=== PATIENT | male | born 1955 | race Caucasian/White ===

== ENCOUNTER 2016-09-01 09:34 | Emergency (ER) | payer MEDICARE, BC | END 2016-09-01 11:32 | disposition home or self-care (01) | LOC: D.ER 09:34 | DX: R07.89 Other chest pain (principal); I10 Essential (primary) hypertension; F17.200 Nicotine dependence, unspecified, uncomplicated ==

== ENCOUNTER 2017-01-12 12:46 | Emergency (ER) | payer MEDICARE, BC ==
[2017-01-12 13:16] LABS: APPEARANCE CLEAR (CLEAR); BILIRUBIN NEGATIVE (NEGATIVE); COLOR YELLOW (YELLOW); GLUCOSE NEGATIVE (NEGATIVE); KETONE NEGATIVE (NEGATIVE); LEUKOCYTE ESTERASE NEGATIVE (NEGATIVE); NITRITE NEGATIVE (NEGATIVE); PROTEIN NEGATIVE (NEGATIVE); UROBILINOGEN NORMAL (NORMAL)
[2017-01-12 13:23] LABS: UDS - AMPHET NEGATIVE QUAL (NEGATIVE); UDS - BARB NEGATIVE QUAL (NEGATIVE); UDS - BENZO NEGATIVE QUAL (NEGATIVE); UDS - COCAINE NEGATIVE QUAL (NEGATIVE); UDS - METH NEGATIVE QUAL (NEGATIVE); UDS - OPIATE NEGATIVE QUAL (NEGATIVE); UDS - PCP NEGATIVE QUAL (NEGATIVE); UDS - THC POSITIVE QUAL (NEGATIVE)
== END 2017-01-12 14:17 | disposition home or self-care (01) ==
LOC: D.ER 12:46
PROVIDERS: Emergency Medicine
DX: F32.9 Major depressive disorder, single episode, unspecified (principal); G89.29 Other chronic pain; I10 Essential (primary) hypertension

== ENCOUNTER 2017-03-02 12:36 | Emergency (ER) | payer MEDICARE, BC ==
[2017-03-02 14:19] LABS: BASOPHILS 0.1 % (0-2); EOSINOPHILS 0.5 % (0-7); HEMATOCRIT 46.8 % (42.0-54.0); HEMOGLOBIN 15.8 g/dL (13.5-17.5); IMMATURE GRANULOCYTES 0.3 % (0-5); LYMPHOCYTES 5.4 % (15-50); MCH 32.4 pg (26.0-34.0); MCHC 33.8 g/dL (31.0-37.0); MCV 95.9 fL (80.0-100.0); MEAN PLATELET VOLUME 12.5 fL (7.4-10.4); MONOCYTES 1.7 % (2-11); PLATELET COUNT 171 10x3/uL (130-400); RBC 4.88 10x6/uL (4.20-6.10); RDW 13.1 % (11.5-14.5); WBC 14.9 10x3/uL (4.8-10.8)
[2017-03-02 16:01] LABS: ALBUMIN 3.5 g/dL (3.4-5.0); ALKALINE PHOSPHATASE 58 U/L (46-116); ALT (SGPT) 28 U/L (10-68); CALC OSMOLALITY 276 mosm/kg (275-300); CHLORIDE - SERUM 105 mmol/L (98-107); CREATININE - SERUM 0.8 mg/dL (0.6-1.3); GLUCOSE 138 mg/dL (74-106); POTASSIUM - SERUM 4.4 mmol/L (3.5-5.1); PROTEIN - SERUM 7.1 g/dL (6.4-8.2); SODIUM 138 mmol/L (136-145); UREA NITROGEN 11 mg/dL (7-18); eGFR NON AFRICAN AMERICAN > 90 mL/min (90-120)
[2017-03-02 16:06] LABS: AMYLASE - SERUM 31 U/L (25-115); CREATINE KINASE 93 UL (21-232); LIPASE 90 U/L (73-393); TROPONIN-I < 0.017 ng/mL (0.000-0.060)
== END 2017-03-02 20:00 | disposition home or self-care (01) ==
LOC: D.ER 12:36
PROVIDERS: Emergency Medicine
DX: K57.92 Diverticulitis of intestine, part unspecified, without perforation or abscess without bleeding (principal); I10 Essential (primary) hypertension

== ENCOUNTER 2017-04-26 17:45 | Emergency (ER) | payer MEDICARE, BC ==
[2017-04-26 18:31] LABS: BASOPHILS 0.1 % (0-2); EOSINOPHILS 0.1 % (0-7); HEMATOCRIT 46.6 % (42.0-54.0); IMMATURE GRANULOCYTES 0.3 % (0-5); LYMPHOCYTES 5.7 % (15-50); MCH 32.2 pg (26.0-34.0); MCHC 34.3 g/dL (31.0-37.0); MCV 93.8 fL (80.0-100.0); MEAN PLATELET VOLUME 11.9 fL (7.4-10.4); MONOCYTES 2.7 % (2-11); NEUTROPHILS 91.1 % (40-80); PLATELET COUNT 207 10x3/uL (130-400); RBC 4.97 10x6/uL (4.20-6.10); RDW 12.7 % (11.5-14.5); WBC 13.7 10x3/uL (4.8-10.8)
[2017-04-26 19:06] LABS: ALBUMIN 3.6 g/dL (3.4-5.0); ALKALINE PHOSPHATASE 58 U/L (46-116); ALT (SGPT) 29 U/L (10-68); BILIRUBIN - TOTAL 0.49 mg/dL (0.2-1.3); CALC OSMOLALITY 275 mosm/kg (275-300); CALCIUM 8.4 mg/dL (8.5-10.1); CHLORIDE - SERUM 101 mmol/L (98-107); CREATININE - SERUM 0.7 mg/dL (0.6-1.3); GLUCOSE 153 mg/dL (74-106); POTASSIUM - SERUM 4.1 mmol/L (3.5-5.1); PROTEIN - SERUM 7.2 g/dL (6.4-8.2); SODIUM 137 mmol/L (136-145); UREA NITROGEN 11 mg/dL (7-18); eGFR NON AFRICAN AMERICAN > 90 mL/min (90-120)
[2017-04-26 20:23] LABS: AMYLASE - SERUM 23 U/L (25-115); LIPASE 81 U/L (73-393)
[2017-04-26 22:03] LABS: APPEARANCE CLEAR (CLEAR); BILIRUBIN NEGATIVE (NEGATIVE); COLOR YELLOW (YELLOW); GLUCOSE NEGATIVE (NEGATIVE); KETONE LARGE mg/dL (NEGATIVE); NITRITE NEGATIVE (NEGATIVE); PROTEIN NEGATIVE (NEGATIVE); UROBILINOGEN NORMAL (NORMAL)
== END 2017-04-26 22:08 | disposition home or self-care (01) ==
LOC: D.ER 17:45
PROVIDERS: Emergency Medicine; Physician Assistant
DX: K52.9 Noninfective gastroenteritis and colitis, unspecified (principal); R11.2 Nausea with vomiting, unspecified; R07.81 Pleurodynia; Z98.890 Other specified postprocedural states; I10 Essential (primary) hypertension

== ENCOUNTER 2018-07-14 12:24 | Observation (INO) | payer MEDICARE, BC ==
[~2018-07-14] VITALS: Ht 175.3 cm; Wt 97.7 kg
--- NOTE | ~2018-07-14 | HEMODYNAMI ---
PATIENT:NELLY CRANE MEDICAL RECORD: [id number] : 57 LOCATION:[facility] JasonE[address]- [facility]# [id number] ADMISSION DATE: 07/14/18 Generatedon:07/14/201817:29 Patient name: NELLY CRANE Patient #: [id number] SSN: D OB: 1955 Date of study: 07/14/2018 Page: Of Hemodynamic Procedure Report Patient Data Patient Demographics Procedure consent was obtained First Name: NELLY Gender: Female Last Name: ROYCE : 1955 Middle Initial: A Age: 63 year(s) Patient #: [id number] Race: Unknown Additional ID: [id number] Contact details [address]: [address] [place] [address] State: [place] City: [place] Zip code: [address] Admission Admission Data Admission Date: 07/14/2018 Admission Time: 15:55 Room #: D.E14 Procedure Procedure Types Cath Procedure Diagnostic Procedure LHC LH w/Coronaries Sedation Charges Moderate Sedation up to 15 minutes PCI Procedure Coronary Stent Coronary Stent Initial x2 Procedure Description Procedure Date Procedure Date: 07/14/2018 Procedure Start Time: 17:10 Procedure End Time: 17:25 Procedure Staff Name Function Frank Boateng MD Performing Physician Nelly Sanchez RT Monitor Casandra Boland RN Nurse Valerie Bowers RT Scrub Sarah Moore RT Scrub Tyree Taylor RT Diesel Instructor Procedure Data Cath Procedure Fluoroscopy Diagnostic fluoroscopy Total fluoroscopy Time: 3.4 time: 3.4 min min Diagnostic fluoroscopy Total fluoroscopy dose: 763 dose: 763 mGy mGy Contrast Material Contrast Material Type Amount (ml) Isovue 300 93 Entry Location Entry Primary Successful Side Size Upsize Upsize Entry Closure Leigh ccessful Closure Location (Fr) 1 (Fr) 2 (Fr) Remarks Device Remarks Radial Right 6 Fr Mechanical artery Short Compression Estimated blood loss: 5 ml Diagnostic catheters Device Type Used For End Catheter Placement DIAGNOSTIC [place] 110cm 5 Multi-vessel Fr catheter ([id number]) Angiography Procedure Complications No complications Procedure Medications Medication Administration Route Dosage 0.9% NaCl I.V. 100 ml/hr Oxygen etCO2 Nasal cannula 2 l/min Lidocaine 2% added to field 20 Heparin Flush Bag added to field 2 bags (1000units/500ml NS) Radial Cocktail added to field 1 syringe (Verapomil 2mg/Nitro 400mcg/Heparin 1500units) Versed I.V. 2 mg Fentanyl I.V. 50 mcg Versed I.V. 2 mg Fentanyl I.V. 50 mcg Fentanyl I.V. 100 mcg Versed I.V. 2 mg Heparin Bolus I.V. 4000 units Integrilin (Bolus I.V. 9 ml 2mg/ml) Plavix P.O. 600 mg Hemodynamics Rest Heart Rate: 82 (bpm) Pressure Samples Time Site Value (mmHg) Purpose Heart Use Rate(bpm) 17:12 LV 21/7,15 Snapshot 87 Snapshots Pre Cath Intra NCS Post Cath Vital Signs Time Heart Resp SPO2 etCO2 NIBP (mmHg) Rhythm Pain Sedation Rate (ipm) (%) (mmHg) Status Level (bpm) 16:58:55 75 13 98 23 157/90(118) NSR 0 (11) 10(A) , No pain 17:03:26 77 15 98 31.9 148/85(123) NSR 0 (11) 10(A) , No pain 17:08:45 76 10 99 29 144/94(113) NSR 0 (11) 10(A) , No pain 17:12:59 86 21 99 32.7 127/108(119) NSR 0 (11) 10(A) , No pain 17:17:19 72 16 97 30.4 147/81(118) NSR 0 (11) 10(A) , No pain 17:21:45 89 14 99 30 134/93(119) NSR 0 (11) 10(A) , No pain 17:26:12 87 14 89 0 139/79(122) NSR 0 (11) 10(A) , No pain Medications Time Medication Route Dose Verified Delivered Reason Not es Effectiveness by by 16:58:05 0.9% NaCl I.V. 100 Frank Gomesyla used for ml/hr Tasneem Boland mva reactor operator head 16:58:12 Oxygen etCO2 2 l/min Frank Coppolaa used for Nasal Tasneem Boland procedure cannula RN 16:58:18 Lidocaine 2% added 20ml Frank Frank for local to vial Tasneem Boateng MD anesthetic field 16:58:23 Heparin Flush added 2 bags Frank Watersrey used for Bag to Tasneem Boateng MD procedure (1000units/500ml field NS) 16:58:29 Radial Cocktail added 1 Frank Frank used for (Verapomil to syringe Tasneem Boateng MD procedure 2mg/Nitro field 400mcg/Heparin 1500units) 17:01:05 Versed I.V. 2 mg Frank Casandra for sedation Tasneem Boland RN 17:01:14 Fentanyl I.V. 50 mcg Frank Casandra for sedation Tasneem Boland RN 17:06:09 Fentanyl I.V. 50 mcg Frank Casandra for sedation Tasneem Boland RN 17:06:25 Versed I.V. 2 mg Frank Casandra for sedation Tasneem Boland RN 17:12:16 Fentanyl I.V. 100 mcg Frank Casandra for sedation Tasneem Boland RN 17:12:46 Versed I.V. 2 mg Frank Casandra for sedation Tasneem Boland RN 17:15:11 Heparin Bolus I.V. 4000 Frank Casandra for val ified units Tasneem Boland anticoagulation with Dr. MARY Boateng 17:21:26 Integrilin I.V. 9 ml Frank Casandra for was atilio (Bolus 2mg/ml) Tasneem Boland anticoagulation 1mL RN 17:21:42 Plavix P.O. 600 mg Frank Casandra for Tasneem Boland antiplatelet RN therapy Procedure Log Time Note 16:37:27 Time tracking: Stay late (Procedures after 5:00pm) 16:37:40 Plan of Care:Hemodynamics will remain stable., Cardiac rhythm will remain stable., Comfort level will be maintained., Respiratory function will remain adequate., Patient/ family verbilizes understanding of procedure., Procedure tolerated without complication., Recovers from procedure without complications.. 16:43:47 Nelly Sanchez RT(R) sent for patient. Start room use. 16:55:38 Patient received from ED to CCL 1 Alert and oriented. Tansferred to table in Supine position. 16:55:39 Warm blankets applied, and ena hugger turned on for patient comfort. 16:55:40 Correct patient and procedure confirmed by team. 16:55:41 Signed procedure consent form obtained from patient. 16:55:42 ECG and BP/O2 sat monitors applied to patient. 16:55:43 Full Disclosure recording started 16:57:15 Vital chart was started 16:57:18 Baseline sample Acquired. 16:57:32 Rhythm: sinus rhythm 16:57:41 H&P Date Dictated: 07/14/2018 New H&P dictated by physician.. 16:57:58 Pre-procedure instructions explained to patient. 16:57:59 Pre-op teaching completed and patient verbalized understanding. 16:58:02 Family in waiting room. 16:58:05 0.9% NaCl 100 ml/hr I.V. was administered by Casandra Boland RN; used for procedure; 16:58:12 Oxygen 2 l/min etCO2 Nasal cannula was administered by Casandra Boland RN; used for procedure; 16:58:18 Lidocaine 2% 20ml vial added to field was administered by Frank Boateng MD; for local anesthetic; 16:58:23 Heparin Flush Bag (1000units/500ml NS) 2 bags added to field was administered by Frank Boateng MD; used for procedure; 16:58:29 Radial Cocktail (Verapomil 2mg/Nitro 400mcg/Heparin 1500units) 1 syringe added to field was administered by Frank Boateng MD; used for procedure; 16:58:52 Patient NPO since Midnight. 16:58:55 Is the patient allergic to Iodine/contrast media? No. 16:58:56 Was the patient premedicated? No 16:59:02 Is patient on blood thinner?No 17:00:01 Patient diabetic? No. 17:00:03 Previous problem with sedation/anesthesia? No ? 17:00:05 Snore? No 17:00:06 Sleep apnea? No 17:00:07 Deviated septum? No 17:00:08 Opens mouth fully? Yes 17:00:08 Sticks out tongue? Yes 17:00:10 Airway obstruction? No ? 17:00:13 Dentures? Yes out 17:00:17 Pre procedure: right dorsailis pedis pulse 2+ Normal; easily identifiable; not easily obliterated 17:00:19 Pre procedure: left dorsailis pedis pulse 2+ Normal; easily identifiable; not easily obliterated 17:00:21 Patient pain scale 0/10 ?. 17:00:29 IV patent on arrival in left antecubital with 0.9% NaCl at [facility]. 17:00:31 Lab results completed and on chart. 17:00:35 Right Radial & Right Groin area was prepped with chlora-prep and draped in sterile fashion 17:00:36 Alarms reviewed by R. N. 17:00:37 Sharps counted by scrub and verified by R.N. 17:00:40 Physician arrived 17:00:40 --------ALL STOP TIME OUT------ 17:00:41 Final Timeout: patient, procedure, and site verified with staff and physician. All members of the team are in agreement. 17:00:42 Right Radial & Right Groin site verified by team. 17:00:47 Fire Safety Assessment: A--An alcohol-based skin anteseptic being used preoperatively., C--Open oxygen or nitrous oxide is being used., D--An ESU, laser, or fiber-optic light is being used. 17:00:51 Physical assessment completed. ASA score P 2 - A patient with mild systemic disease as per Frank Boateng MD. 17:00:56 Sedation plan: IV Moderate Sedation Medication:Versed, Fentanyl 17:01:05 Versed 2 mg I.V. was administered by Casandra Boland RN; for sedation; 17:01:14 Fentanyl 50 mcg I.V. was administered by Casandra Boland RN; for sedation; 17:06:09 Fentanyl 50 mcg I.V. was administered by Casandra Boland RN; for sedation; 17:06:25 Versed 2 mg I.V. was administered by Casandra Boland RN; for sedation; 17:07:07 Baseline sample Acquired. 17:10:09 Procedure started. 17:10:20 Local anesthetic to right radial artery with Lidocaine 2% by Frank Boateng MD.INITIAL ACCESS ONLY 17:10:36 A 6 Fr Short sheath was inserted into the Right Radial artery 17:11:09 Use device set Radial Dx or PCI 17:11:10 ACIST Syringe (82325) opened to sterile field. 17:11:11 Medline Cath Pack ([id number]) opened to sterile field. 17:11:11 Bag Decanter () opened to sterile field. 17:11:11 DIAGNOSTIC WIRE .035 260cm J wire (699843) opened to sterile field. 17:11:12 ACIST Hand Control (40029) opened to sterile field. 17:11:12 ACIST Manifold (30059) opened to sterile field. 17:11:13 Tegaderm 4 x 4 (1626W) opened to sterile field. 17:11:14 MBrace Wrist Support ([id number]) opened to sterile field. 17:11:15 SHEATH 6FR Slender (84-6562) opened to sterile field. 17:11:32 A DIAGNOSTIC [place] 110cm 5 Fr catheter (198538) was advanced over the wire and used for Multi-vessel Angiography. 17:12:16 Fentanyl 100 mcg I.V. was administered by Casandra Boland RN; for sedation; 17:12:43 LV hemodynamics recorded. 17:12:45 LV gram done using NGUYEN 17:12:46 Versed 2 mg I.V. was administered by Casandra Boland RN; for sedation; 17:12:50 EF : 55 % 17:13:13 LCA angiography performed. 17:13:16 Injector settings: Ml/sec: 3, Volume: 6, 17:13:48 RCA angiography performed. 17:13:51 Injector settings: Ml/sec: 3, Volume: 6, 17:14:21 Catheter removed. 17:14:33 GUIDE 6FR AR 2.0 catheter ([id number]) opened to sterile field. 17:14:35 CHOICE PT Extra Support 182cm wire ([id number]) opened to sterile field. 17:14:36 INFLATOR Merit BasixCompak (DB1087) opened to sterile field. 17:14:40 Proceeding to intervention. 17:14:50 6 Fr ar 2 guide catheter was inserted over the wire 17:14:54 choice pt wire advanced. 17:14:56 Wire advanced across lesion. 17:15:11 Heparin Bolus 4000 units I.V. was administered by Casandra Boland RN; for anticoagulation; verified with Dr. Boateng 17:18:07 Place stent Inflation Number: 1 A INTEGRITY RX 2.5 x 12 stent ([id number]) was prepped and advanced across the Dist RCA. The stent was deployed at 13 LAN for 0:10 (min:sec). 17:18:51 Stent catheter was removed intact over wire. 17:18:56 Wire removed. 17:18:57 Guide catheter removed. 17:19:52 GUIDE 6FR XBLAD 3.5 catheter ([id number]) opened to sterile field. 17:20:08 6 Fr xblad 3.5 guide catheter was inserted over the wire 17:20:17 choice pt wire advanced. 17:20:18 Wire advanced across lesion. 17:21:26 Integrilin (Bolus 2mg/ml) 9 ml I.V. was administered by Casandra Boland RN; for anticoagulation; wasted 1mL 17:21:38 Place stent Inflation Number: 1 A INTEGRITY RX 2.5 x 14 stent ([id number]) was prepped and advanced across the Prox CX. The stent was deployed at 15 LAN for 0:10 (min:sec). 17:21:42 Plavix 600 mg P.O. was administered by Casandra Boland RN; for antiplatelet therapy; 17:21:44 Stent catheter was removed intact over wire. 17:21:45 Wire removed. 17:21:46 Guide catheter removed. 17:23:04 TR BAND Large ([id number]) opened to sterile field. 17:24:14 Sheath removed intact; hemostasis achieved with Mechanical Compression to the Right Radial artery. 17:24:16 Procedure ended.(Physican Out) 17:24:28 Fluoroscopy time 03.40 minutes. 17:24:32 Fluoroscopy dose: 763 mGy 17:24:32 Flurop Dose total: 763 17:24:39 Contrast amount:Isovue 300 93ml. 17:24:41 Sharps counted by scrub and verified by R.N. 17:24:44 TR band inflated with 10cc of air. 17:24:46 Insertion/operative site no bleeding no hematoma. 17:24:50 Post right radial artery:stable 17:24:51 Post Procedure Pulses reassessed and unchanged 17:24:54 Post procedure rhythm: unchanged. 17:24:57 Estimated blood loss: 5 ml 17:24:58 Post procedure instruction explained to patient.Patient verbalizes understanding. 17:24:59 Patient needs reinforcement of post procedure teaching. 17:25:24 Procedure type changed to Cath procedure, Diagnostic procedure, LHC, LHC w/Coronaries, Sedation Charges, Moderate Sedation up to 15 minutes, PCI procedure, Coronary Stent, Coronary Stent Initial x2 17:25:25 Procedure and supply charges have been captured, reviewed, submitted and are correct. 17:25:30 Procedure Complication : No complications 17:25:32 Vital chart was stopped 17:25:32 See physician's report for complete and final results. 17:25:39 Report given to [facility]. 17:25:42 Patient transfered to [facility] with Stretcher. 17:25:45 Procedure ended. 17:25:45 Full Disclosure recording stopped 17:25:54 ACC-PCI Only Patient was given prescriptions, or instructed by Frank Boateng MD to start/continue the following medications upon discharge: Plavix 17:25:56 End room use (Document Last) Intervention Summary Intervention Notes Time ActionType Lesion and Equipment Action# Pressure Duration Attributes Used 17:18:07 Place stent Dist RCA INTEGRITY RX 1 13 00:10 2.5 x 12 stent ([id number]) 17:21:38 Place stent Prox CX INTEGRITY RX 1 15 00:10 2.5 x 14 stent ([id number]) Device Usage Item Name Manufacture Quantity Catalog Number Hospital Part Current Mini mal Lot# / Charge Number Stock Stock Serial# Code ACIST Acist 1 74748 089568 397827 048764 20 Syringe Medical (43794) Systems Inc Medline Cath Medline 1 [id number] 932580 41594 327661 5 Pack ([id number]) Bag Decanter Microtek 1 2001S 817300 71812 888228 5 (2001S) Medical Inc. DIAGNOSTIC St Artem 1 701346 960777 251596 510863 30 WIRE .035 260cm J wire (691942) ACIST Hand Acist 1 83787 386015 766118 166619 5 Control Medical (58271) Systems Inc ACIST Acist 1 82843 742046 058464 928097 5 Manifold Medical (77132) Systems Inc Tegaderm 4 x 3M 1 1626W 690304 283941 653450 5 4 (1626W) MBrace Wrist Advanced 1 140-0250-00 219400 18779 308098 5 Support Vascular (533175720) Dynamics SHEATH 6FR Terumo 1 [id number] 792500 935585 866353 5 Slender (80-1060) DIAGNOSTIC Terumo 1 40-5013 247327 026342 271214 5 [place] 110cm 5 Fr catheter (728175) GUIDE 6FR AR Medtronic 1 BM3ON05 285598 47532 851525 1 2.0 catheter (QS3HP65) CHOICE PT Hudgins 1 [id number] 486263 127244 969180 5 Extra Scientific Support 182cm wire ([id number]) INFLATOR Merit 1 ZI2695 702809 314694 668114 15 [facility] Medical BasixCompak (LT8103) INTEGRITY RX Medtronic 1 [id number] 355035 146100 249125 5 [id number] 2.5 x 12 stent ([id number]) GUIDE 6FR Cardinal 1 [id number] 249890 290031 441859 10 XBLAD 3.5 Health catheter (67407289) INTEGRITY RX Medtronic 1 [id number] 858045 580272 190031 5 [id number] 2.5 x 14 stent ([id number]) TR BAND Terumo 1 [id number] 344501 853865 484212 40 Large (HHY84BWS) Signature Audit [place] Stage Time Signature Unsigned Intra-Procedure 07/14/2018 Valerie Bowers 5:29:45 PM RT(R) Signatures Monitor : Nelly Signature : Counts RT Date : Time : [place] [address] [place] [address]
[2018-07-14] MEDS ORDERED: AMITRIPTYLINE150 MG PO (12:31)
[2018-07-14] MEDS ORDERED: MOBIC7.5 MG PO (12:32)
[2018-07-14] MEDS ORDERED: NORVASC5 MG PO (12:32)
[2018-07-14 12:55] LABS: BASOPHILS 0.3 % (0-2); EOSINOPHILS 2.5 % (0-7); HEMATOCRIT 41.3 % (36.0-48.0); HEMOGLOBIN 14.3 g/dL (12-16); IMMATURE GRANULOCYTES 0.1 % (0-5); MCH 30.9 pg (26.0-34.0); MCHC 34.6 g/dL (31.0-37.0); MCV 89.2 fL (80.0-100.0); MEAN PLATELET VOLUME 11.3 fL (7.4-10.4); MONOCYTES 6.7 % (2-11); NEUTROPHILS 73.4 % (40-80); PLATELET COUNT 189 10x3/uL (130-400); RBC 4.63 10x6/uL (4.00-5.40); RDW 13.8 % (11.5-14.5); WBC 7.9 10x3/uL (4.8-10.8)
[2018-07-14 13:10] LABS: ALBUMIN 3.2 g/dL (3.4-5.0); ALKALINE PHOSPHATASE 46 U/L (46-116); ALT (SGPT) 19 U/L (10-68); BILIRUBIN - TOTAL 0.46 mg/dL (0.2-1.3); CALC OSMOLALITY 280 mosm/kg (275-300); CALCIUM 7.9 mg/dL (8.5-10.1); CARBON DIOXIDE 22.2 mmol/L (21.0-32.0); CHLORIDE - SERUM 105 mmol/L (98-107); CREATININE - SERUM 0.8 mg/dL (0.6-1.3); GLUCOSE 116 mg/dL (74-106); POTASSIUM - SERUM 3.8 mmol/L (3.5-5.1); SODIUM 141 mmol/L (136-145); UREA NITROGEN 9 mg/dL (7-18); eGFR NON AFRICAN AMERICAN 77 mL/min (90-120)
[2018-07-14 13:21] LABS: CKMB 5.5 U/L (0.0-3.6); CREATINE KINASE 156 UL (21-215)
[2018-07-14 13:22] LABS: TROPONIN-I < 0.017 ng/mL (0.000-0.060)
[2018-07-14] MEDS ORDERED: ZPAK PO (16:24)
[2018-07-14 16:36] VITALS: BP 147/91
--- NOTE | 2018-07-14 18:20 | NUR ---
RECIEVED FROM EMAIL DEPLOYMENT SPECIALIST. TELEMERTY SHOWS SR. RIGHT TR BAND WITH NO SWELLING OR EDEMA . NO NEEDS VOICED. V/S STABLE.
[2018-07-14 20:00] VITALS: BP 160/80
[2018-07-14 22:00] VITALS: BP 133/83; Ht 175.3 cm; Wt 97.7 kg
[2018-07-14] MEDS ORDERED: PLAVIX75 MG PO (22:47)
--- NOTE | 2018-07-14 23:38 | NUR ---
PT DISCHARGED HOME WITH PAPER PLAVIX SCRIPT. DISCHARGE INSTRUCTIONS AND AFTER CARE DIRECTIONS GIVEN. CATHETER SITE TO RIGHT RADIAL CLEAN AND DRY. VITALS STABLE. PT ALERT AND ORIENTED. 20G IV DC'D WITH CATHETER TIP IN PLACE. PT DENIES ANY FURTER NEEDS AT THIS TIME.
--- NOTE | 2018-07-17 09:11 | MORECARE ---
CASE MANAGEMENT DISCHARGE SUMMARY PATIENT: CARA CRANE UNIT: [id number] ADM DATE: 07/14/18 AGE: 63 : 57 SEX: F ROOM/BED: D.3473 AUTHOR: TY COSME PHYSICIAN: REFERRING PHYSICIAN: ARTHUR MIRAMONTES MD DATE OF SERVICE: 07/17/18 Discharge Plan Patient Name: CARA CRANE [facility] 1955 Planned Disposition: Home Anticipated Discharge Date: 07/14/18 Discharge Date: 07/14/2018 Expected LOS: 1 Initial Reviewer: [email or web address] Initial Review Date: 07/17/2018 Generated: 07/17/18 10:11 am Coverage Notice Reviewer: [email or web address] Vivian Granados Notice Issued Date-Time: 07/14/2018 16:20 Notice Type: Medicare Outpatient Observation Notice Notice Delivered To: Patient Relationship to Patient: Forestry Technical Officer Name: Delivery Method: HAND - Hand Delivered Radha Days: Prior Verbal Notification: Recipient Understood Notice: Yes Recipient Signature: Yes Med Rec Note Co-signed by Attending: Coverage Notice Comment: Patient Name: CARA CRANE Page [phone] at 0911 All edits/amendments must be made on the electronic document DICTATION DATE: 07/17/18909 STAFF PHARMACIST: SANDI 07/17/18909 RPT#: [id number] DC DATE:07/14/18 STATUS: DIS IN [facility] [address] [place] [address] END OF REPORT
--- NOTE | 2018-07-17 11:46 | OP ---
PATIENT NAME: CARA CRANE MEDICAL RECORD: [id number] :57 LOCATION:D.M2 D.2123 ADMISSION DATE:07/14/18 SURGEON: ARTHUR MIRAMONTES MD DATE OF OPERATION: 07/14/2018 PROCEDURES: 1. PTCA and stent of RCA. 2. PTCA and stent of left circumflex. 3. Left heart catheterization. 4. Selective coronary angiography. 5. Left ventriculogram. INDICATIONS: Angina and coronary artery disease. PROCEDURE PERFORMED: After informed consent was obtained and after detailed explanation of risks, benefits as well as alternative therapies, the patient elected to proceed with angiogram and angioplasty. The right femoral area was prepped and draped in normal sterile fashion. Right femoral artery was cannulated via Seldinger technique with placement of 6-English sheath. All catheters exchanged through this sheath. FINDINGS: The left ventriculogram was performed in standard 30-degree NGUYEN view, reveals good cardiac wall motion throughout all segments. Overall ejection fraction 55%. SELECTIVE CORONARY ANGIOGRAPHY: 1. Left main showed no significant angiographic disease. 2. Left anterior descending has mild irregularities, but no flow-limiting stenosis. 3. The left circumflex has 90% stenosis proximally. 4. The right coronary has 90% stenosis distally. PTCA AND STENT OF THE LEFT CIRCUMFLEX and RCA: RCA was addressed with a 2.5 x 12-mm Integrity stent and the circumflex with a 2.5 x 14-mm Integrity stent. Result was 0% residual stenosis. OVERALL IMPRESSION: Successful PTCA and stent of the left circumflex and RCA going from 90% initial stenosis on each vessel to 0% residual. TRANSINT:[id number] Voice Confirmation ID: [id number] DOCUMENT ID: [id number] ARTHUR MIRAMONTES MD at 1146 CC: [id number] DICTATION DATE: 07/14/18 1727 MINE ANALYST: 07/15/18 0056 DIS IN 07/14/18 [place] [id number] [facility]
--- NOTE | 2018-07-17 11:46 | CN ---
PATIENT NAME:CARA CRANE MEDICAL RECORD: [id number] : 57 LOCATION:. D.2123 ADMIT DATE: 07/14/18 ACCOUNT: [id number] CONSULTING PHYSICIAN: ARTHUR MIRAMONTES MD REFERRING PHYSICIAN: ARTHUR MIRAMONTES MD DATE OF CONSULTATION: 07/14/2018 ADMITTING DIAGNOSES: 1. Angina. 2. Coronary artery disease. 3. Previous percutaneous transluminal coronary angioplasty stent. 4. Premature ventricular contractions -- dysrhythmia. 5. Hypertension. HISTORY OF PRESENT ILLNESS: This is a gentleman who used to be Heraclio Domingo is undergoing a change, Last cardiac stenting was in 2011, now having angina for the past week in an increasing fashion as well, having increasing PVCs. This is just like his previous angina, last cardiac stent in 2011. His EKG has significant for multiple PVCs, no acute ST-T abnormalities. He does continue to have chest pain at 5/10. PHYSICAL EXAMINATION: GENERAL APPEARANCE: Well-nourished, well-developed, appears stated age. Level of distress, comfortable. PSYCHIATRIC: Mental status, alert, normal affect. Orientation, oriented to time, place and person. EYES: Lids and conjunctiva, noninjected. No discharge, no pallor. ENT: Lips, teeth, gums, normal dentition. Oropharynx, no cyanosis, no pallor. NECK: Carotid arteries, bilateral normal upstroke, no bruits, no thrills. JUGULAR VEINS: No jugular venous pressure or distention. CERVICAL LYMPH NODES: Nontender, nonenlarged. THYROID: Not enlarged. Nontender. No nodules. LUNGS: Respiratory effort, unlabored. CHEST: Normal curvature. No thoracic deformity. No chest wall tenderness. Percussion, resonant. Auscultation, clear. No wheezes, no rales, no rhonchi. CARDIOVASCULAR: Precordial exam, nondisplaced. No heaves or pericardial thrills. Rate and rhythm, regular. Heart sounds, normal S1, normal S2. No S3, no gallop, no rub. Systolic murmur, not heard. Diastolic murmur, not heard. EXTREMITIES: No cyanosis, no edema. Peripheral pulses, full and equal in all extremities, except as noted. No bruits appreciated. ABDOMEN: Soft, nondistended. Normal aorta. No bruit. Nontender. No masses. Liver, nontender, no hepatomegaly. Spleen, nontender, no splenomegaly. MUSCULOSKELETAL: No joint tenderness. No joint swelling. No erythema. NEUROLOGICAL: Normal gait, normal strength, normal tone. SKIN: Warm and dry. OVERALL IMPRESSION: Anginal chest discomfort. Most likely, the increased premature ventricular contractions are due to cardiac irritability from ischemia and as is the angina. We will proceed with coronary angiography. Further care depends upon findings of the angiography. TRANSINT:[id number] Voice Confirmation ID: [id number] DOCUMENT ID: [id number] CONSULT REPORT [id number] CARA CRANE JEFFREY MD at 1146 CC: [id number] DICTATION DATE: 07/14/18 1507 MANAGER LAW: 07/14/18 2331 DIS IN 07/14/18 [facility] [address] [place] [address]
== END 2018-07-14 23:41 | disposition home or self-care (01) ==
LOC: D.ER 12:24 → D.EDHOLD 15:55 → D.M2 15:55 → OBSVTIME 15:55 → D.M2 18:11
PROVIDERS: Family Medicine; ADMIT Internal Medicine Interventional Cardiology
DX: I25.119 Atherosclerotic heart disease of native coronary artery with unspecified angina pectoris (principal); I10 Essential (primary) hypertension; I49.3 Ventricular premature depolarization

== ENCOUNTER 2018-12-01 16:04 | Observation (INO) | payer MEDICARE, BC ==
[~2018-12-01] VITALS: Ht 175.3 cm; Wt 90.9 kg
--- NOTE | ~2018-12-01 | HEMODYNAMI ---
PATIENT:CARA CRANE MEDICAL RECORD: [id number] : 57 LOCATION[facility] D.[address] [id number] ADMISSION DATE: 12/01/18 Generatedon:12/02/201811:41 Patient name: CARA CRANE Patient #: [id number] SSN: D OB: 1955 Date of study: 12/02/2018 Page: Of Hemodynamic Procedure Report Patient Data Patient Demographics Procedure consent was obtained First Name: CARA Gender: Female Last Name: ROYCE : 1955 Middle Initial: A Age: 63 year(s) Patient #: [id number] Race: Unknown Additional ID: [id number] Contact details [address]: [address] [place] [address] State: [place] City: [place] Zip code: [address] Past Medical History Allergies: No known allergies Admission Admission Data Admission Date: 12/01/2018 Admission Time: 18:32 Room #: D.2120 Weight (lbs.): 200.62 Weight (kg.): 91 Lab Results Lab Result Date: 12/02/2018 Lab Result Time: 0:00 Biochemistry Name Units Result Min Max BUN mg/dl 11 --(-*--)-- 7 18 Creatinine mg/dl 0.8 --(-*--)-- 0.6 1.3 eGFR ml/min 76.27881 *-(----)-- 90 120 NONAFRICAN CBC Name Units Result Min Max Hematocrit % 42.5 --(*---)-- 42 54 Hemoglobin g/dl 14.8 --(-*--)-- 13.5 17.5 Procedure Procedure Types Cath Procedure Diagnostic Procedure C [facility] w/Coronaries Sedation Charges Moderate Sedation up to 15 minutes PCI Procedure Coronary Stent Coronary Stent Initial Peripheral Cath Diagnostic Procedure Crm Solution Architect Peripheral Procedures Four Vessel Arteriogram Procedure Description Procedure Date Procedure Date: 12/02/2018 Procedure Start Time: 11:18 Procedure End Time: 11:40 Procedure Staff Name Function Heraclio Lee MD Performing Physician Christine Clifton RT Monitor Tyree Taylor RT Scrub Donovan Wiggins RN Nurse Procedure Data Cath Procedure Fluoroscopy Diagnostic fluoroscopy Total fluoroscopy Time: 3.6 time: 3.6 min min Diagnostic fluoroscopy Total fluoroscopy dose: 586 dose: 586 mGy mGy Contrast Material Contrast Material Type Amount (ml) Isovue 300 107 Entry Location Entry Primary Successful Side Size Upsize Upsize Entry Closure Succes sful Closure Location (Fr) 1 (Fr) 2 (Fr) Remarks Device Remarks Femoral Right 5 Fr 6 Fr Exoseal artery Short Estimated blood loss: 10 ml Diagnostic catheters Device Type Used For End Catheter Placement MULTIPACK JL 4.0 5Fr Procedure catheter DIAGNOSTIC 3DRC 5Fr Procedure catheter ([id number]) MULTIPACK Pigtail 5 Fr Procedure catheter Procedure Complications No complications Procedure Medications Medication Administration Route Dosage Oxygen etCO2 Nasal cannula 2 l/min Lidocaine 2% added to field 20 Heparin Flush Bag added to field 2 bags (1000units/500ml NS) 0.9% NaCl I.V. 100 ml/hr Versed I.V. 2 mg Fentanyl I.V. 50 mcg Versed I.V. 2 mg Fentanyl I.V. 50 mcg Versed I.V. 2 mg Fentanyl I.V. 50 mcg Heparin Bolus I.V. 4000 units Integrilin (Bolus I.V. 8.5 ml 2mg/ml) Versed I.V. 2 mg Fentanyl I.V. 50 mcg Plavix P.O. 600 mg Hemodynamics Rest HGB: 14.8 (g/dl) Heart Rate: 69 (bpm) Pressure Samples Time Site Value (mmHg) Purpose Heart Use Rate(bpm) 11:24 LV 156/21,21 Snapshot 101 11:24 AO 171/87(127) Pullback 71 Gradients Valve Time Site Site 2 Mean SEP/DFP Peak To Heart Use 1 (mmHg) (sec/min) Peak Rate (mmHg) (bpm) Aortic 11:24 LV AO 71 171/87(127) Snapshots Pre Cath Intra NCS Post Cath Vital Signs Time Heart Resp SPO2 etCO2 NIBP (mmHg) Rhythm Pain Sedation Rate (ipm) (%) (mmHg) Status Level (bpm) 11:01:21 69 14 95 0 162/85(127) NSR 0 (11) 10(A) , No pain 11:05:43 73 28 94 0 159/92(124) NSR 0 (11) 10(A) , No pain 11:10:01 64 15 94 1.5 137/80(116) NSR 0 (11) 10(A) , No pain 11:15:10 66 10 94 12.7 146/77(127) NSR 0 (11) 10(A) , No pain 11:19:24 64 13 94 18.8 129/76(114) NSR 0 (11) 9(A) , No pain 11:24:30 85 15 92 35.3 166/71(139) NSR 0 (11) 10(A) , No pain 11:28:54 76 10 94 32.3 155/84(127) NSR 0 (11) 10(A) , No pain 11:33:16 80 12 93 7.5 163/81(121) NSR 0 (11) 10(A) , No pain 11:37:32 79 13 94 33.8 147/80(131) NSR 0 (11) 10(A) , No pain Medications Time Medication Route Dose Verified Delivered Reason Notes Effectiveness by by 11:08:08 Oxygen etCO2 2 Heraclio Donovan used for Nasal l/min St Nasir Wiggins RN procedure cannula 11:08:16 Lidocaine 2% added 20ml Heraclio Pulliam for local to vial [facility] anesthetic field MD CARTER 11:08:21 Heparin Flush added 2 Heraclio Heraclio used for Bag to bags [facility] procedure (1000units/500ml field MD CARTER NS) 11:08:30 0.9% NaCl I.V. 100 Heraclio Man Per physician ml/hr St Nasir Wiggins RN, MD 11:09:20 Versed I.V. 2 mg Heraclio Buffie for sedation St Nasir Wiggins RN, MD 11:09:27 Fentanyl I.V. 50 Heraclio Buffie for sedation mcg St Nasir Wiggins RN, MD 11:13:50 Versed I.V. 2 mg Heraclio Buffie for sedation St Nasir Wiggins RN, MD 11:13:56 Fentanyl I.V. 50 Heraclio Buffie for sedation liane Ramirez RN, MD 11:18:11 Versed I.V. 2 mg Heraclio Buffie for sedation St Nasir Wiggins RN, MD 11:18:57 Fentanyl I.V. 50 Heraclio Buffie for sedation [facility] [place] [facility]ir Wiggins RN, MD 11:26:44 Heparin Bolus I.V. 4000 Heraclio Man for verif ied units St Nasir Wiggins RN anticoagulation with dr MD silver 11:28:05 Integrilin I.V. 8.5 Heraclio Man for waste d (Bolus 2mg/ml) ml St Nasir Wiggins RN antiplatelet 1.5 ml therapy of vial 11:30:03 Versed I.V. 2 mg Heraclio Man for sedation St Nasir Wiggins RN, MD 11:30:07 Fentanyl I.V. 50 Heraclio Man for sedation mcg St Nasir Wiggins RN, MD 11:37:33 Plavix P.O. 600 Heraclio Man for mg St Nasir Wiggins RN antiplatelet therapy Procedure Log Time Note 10:29:52 Tyree Taylor RT(R) sent for patient. Start room use. 10:29:54 Time tracking: Call back (After hours or weekends) 10:29:58 Plan of Care:Hemodynamics will remain stable., Cardiac rhythm will remain stable., Comfort level will be maintained., Respiratory function will remain adequate., Patient/ family verbilizes understanding of procedure., Procedure tolerated without complication., Recovers from procedure without complications.. 10:38:14 Signed procedure consent form obtained from patient. 10:38:16 Diagnostic Cath status Urgent 10:43:37 Patient allergic to No known allergies 10:43:42 Patient Weight : 200.62 lbs 10:44:20 Lab Result : BUN 11 mg/dl 10:44:20 Lab Result : eGFR NONAFRICAN 76.81846 ml/min 10:44:20 Lab Result : Creatinine 0.8 mg/dl 10:44:20 Lab Result : Hematocrit 42.5 % 10:44:20 Lab Result : Hemoglobin 14.8 g/dl 10:49:03 Patient received from Med II to CCL 1 Alert and oriented. Tansferred to table in Supine position. 10:49:04 Warm blankets applied, and ena hugger turned on for patient comfort. 10:49:04 Correct patient and procedure confirmed by team. 10:49:05 ECG and BP/O2 sat monitors applied to patient. 10:55:20 IV left forearm D/C'd due to infiltration. 10:55:35 IV started by Donovan Wiggins RN inright forearm with a 22 gauge IV catheter with 0.9% NaCl at KVO. 11:00:14 Vital chart was started 11:00:20 Rhythm: sinus rhythm 11:00:22 Full Disclosure recording started 11:00:27 Pre-procedure instructions explained to patient. 11:00:28 Pre-op teaching completed and patient verbalized understanding. 11:00:33 H&P Date Dictated: 12/02/2018 Within 30 days and on chart.. 11:00:36 Family unavailable. 11:00:37 Patient NPO since Midnight. 11:00:39 Is the patient allergic to Iodine/contrast media? No. 11:00:41 Is patient on blood thinner?No 11:00:44 Patient diabetic? No. 11:00:47 Previous problem with sedation/anesthesia? No ? 11:00:50 Snore? Yes 11:00:51 Sleep apnea? No 11:00:52 Deviated septum? No 11:00:52 Opens mouth fully? Yes 11:00:53 Sticks out tongue? Yes 11:00:55 Airway obstruction? No ? 11:00:59 Dentures? Yes IN 11:01:03 Pre procedure: right dorsailis pedis pulse 1+ Palpable, but thready & weak; easily obliterated 11:01:05 Patient pain scale 0/10 ?. 11:01:10 Lab results completed and on chart. 11:01:13 Right groin area was prepped with chlora-prep and draped in sterile fashion 11:01:15 Alarms reviewed by R. N. 11:01:15 Sharps counted by scrub and verified by R.N. 11:01:20 Baseline sample Acquired. 11:08:05 Use device set Femoral Dx 11:08:08 Oxygen 2 l/min etCO2 Nasal cannula was administered by Donovan Wiggins RN; used for procedure; 11:08:08 ACIST Syringe (56312) opened to sterile field. 11:08:08 Bag Decanter (2002S) opened to sterile field. 11:08:09 ACIST Hand Control (72547) opened to sterile field. 11:08:10 ACIST Manifold (36067) opened to sterile field. 11:08:11 Tegaderm 4 x 4 (1626W) opened to sterile field. 11:08:13 Medline Cath Pack ([id number]) opened to sterile field. 11:08:14 DIAGNOSTIC Multipack 5Fr catheter set (MV9332) opened to sterile field. 11:08:15 SHEATH 5FR Hollis (JBM587) opened to sterile field. 11:08:16 Lidocaine 2% 20ml vial added to field was administered by Heraclio Lee MD; for local anesthetic; 11:08:16 EMERALD Guide Wire (890-347) opened to sterile field. 11:08:21 Heparin Flush Bag (1000units/500ml NS) 2 bags added to field was administered by Heraclio Lee MD; used for procedure; 11:08:30 0.9% NaCl 100 ml/hr I.V. was administered by Donovan Wiggins RN; Per physician; 11::53 --------ALL STOP TIME OUT------ ::53 Final Timeout: patient, procedure, and site verified with staff and physician. All members of the team are in agreement. 11:08:55 Right groin site verified by team. 11:08:59 Fire Safety Assessment: A--An alcohol-based skin anteseptic being used preoperatively., C--Open oxygen or nitrous oxide is being used., D--An ESU, laser, or fiber-optic light is being used. 11:09:02 Physical assessment completed. ASA score P 2 - A patient with mild systemic disease as per Heraclio Lee MD. 11:09:05 Maximum allowable contrast does (3.7 X eGFR X 0.75)213 ml. 11:09:11 2) 60-89 Mildly reduced kidney function, and other findings (as for stage 1) point to kidney disease. 11:09:15 Sedation plan: IV Moderate Sedation Medication:Versed, Fentanyl 11::20 Versed 2 mg I.V. was administered by Donovan Wiggins RN; for sedation; 11::27 Fentanyl 50 mcg I.V. was administered by Dnoovan Wiggins RN; for sedation; 11::50 Versed 2 mg I.V. was administered by Donovan Wiggins RN; for sedation; 11::56 Fentanyl 50 mcg I.V. was administered by Donovan Wiggins RN; for sedation; 11:17:06 Zero performed for pressure channel P1 11:17:28 Procedure started. 11:18:02 Local anesthetic to right femoral artery with Lidocaine 2% by Heraclio Lee MD.INITIAL ACCESS ONLY 11:18:11 Versed 2 mg I.V. was administered by Donovan Wiggins RN; for sedation; 11:18:44 A 5 Fr sheath was inserted into the Right Femoral artery 11:18:57 Fentanyl 50 mcg I.V. was administered by Donovan Wiggins RN; for sedation; 11:19:48 A MULTIPACK JL 4.0 5Fr catheter was advanced over the wire and used for Procedure. 11:20:53 LCA angiography performed. 11:20:56 Catheter removed. 11:21:26 A DIAGNOSTIC 3DRC 5Fr catheter ([id number]) was advanced over the wire and used for Procedure. 11:22:11 RCA angiography performed. 11:22:41 Right carotid angiography performed. 11:23:05 Left carotid angiography performed. 11:23:14 Catheter removed. 11::48 A MULTIPACK Pigtail 5 Fr catheter was advanced over the wire and used for Procedure. 11:24:14 LV gram done using NGUYEN 11:24:17 Injector settings: Ml/sec: 10, Volume: 20, 11:24:34 LV hemodynamics recorded. 11:24:38 EF : 55 % 11:24:39 Catheter removed. 11:24:42 SHEATH 6FR Hollis (IUT479) opened to sterile field. 11:24:42 WHISPER 300cm guide wire ([id number]) opened to sterile field. 11:24:43 INFLATOR Merit BasixCompak (IW5324) opened to sterile field. 11:24:43 GUIDE 6FR HS I catheter (LA6HSI) opened to sterile field. 11:25:38 Sheath upsized to a 6 Fr Short. 11::44 Heparin Bolus 4000 units I.V. was administered by Donovan Wiggins RN; for anticoagulation; verified with dr silver 11:26:45 6 Fr HS 1 guide catheter was inserted over the wire 11:27:58 WHISPER 300 wire advanced. 11:28:05 Integrilin (Bolus 2mg/ml) 8.5 ml I.V. was administered by Donovan Wiggins RN; for antiplatelet therapy; wasted 1.5 ml of vial 11:28:57 Wire advanced across lesion. 11:29:34 Inflate balloon Inflation number: 1 A EMERGE OTW 3.0 x 15 balloon ([id number]) was prepped and advanced across the Dist RCA , then inflated to 12 LAN for 0:20 (min:sec) . 11:30:03 Versed 2 mg I.V. was administered by Donovan Wiggins RN; for sedation; 11:30:07 Fentanyl 50 mcg I.V. was administered by Donovan Wiggins RN; for sedation; 11:30:18 Balloon removed over the wire. 11:32:34 Place stent Inflation Number: 2 A MOOKIE RX 3.0 x 15 stent ([id number]) was prepped and advanced across the Dist RCA . The stent was deployed at 12 LAN for 0:15 (min:sec) . 11:33:09 Stent catheter was removed intact over wire. 11:33:09 Wire removed. 11:33:10 Guide catheter removed. 11:33:15 EXOSEAL 6Fr (EX600) opened to sterile field. 11:34:27 Sheath removed intact; hemostasis achieved with Exoseal to the Right Femoral artery. 11:34:30 Procedure ended.(Physican Out) 11:34:51 Fluoroscopy time 03.60 minutes. 11:34:56 Flurop Dose total: 586 11:34:56 Fluoroscopy dose: 586 mGy 11:34:59 Contrast amount:Isovue 300 107ml. 11:35:03 Post-op/insertion site Right Femoral artery dressed using a 4 x 4 and Tegaderm. 11:35:06 Post-procedure physical assessment completed. ASA score P 2 - A patient with mild systemic disease as per Heraclio Lee MD. 11:35:08 Post procedure rhythm: sinus rhythm 11:35:10 Estimated blood loss: 10 ml 11:35:12 Post procedure instruction explained to patient.Patient verbalizes understanding. 11:35:12 Patient needs reinforcement of post procedure teaching. 11:35:27 Procedure type changed to Cath procedure, Diagnostic procedure, LHC, LHC w/Coronaries, Sedation Charges, Moderate Sedation up to 15 minutes, PCI procedure, Coronary Stent, Coronary Stent Initial, Peripheral Cath Diagnostic Procedure, Crm Solution Architect Peripheral Procedures, Four Vessel Arteriogram 11:35:57 Procedure and supply charges have been captured, reviewed, submitted and are correct. 11:35:59 Procedure Complication : No complications 11:37:33 Plavix 600 mg P.O. was administered by Donovan Wiggins RN; for antiplatelet therapy; 11:40:31 Vital chart was stopped 11:40:31 See physician's report for complete and final results. 11:40:37 Report given to PCU. 11:40:49 Patient transfered to PCU with Bed. 11:40:53 Procedure ended. 11:40:53 Full Disclosure recording stopped 11:40:59 End room use (Document Last) Intervention Summary Intervention Notes Time ActionType Lesion and Equipment Used Action# Pressure Duration Attributes 11:29:34 Inflate Dist RCA EMERGE OTW 3.0 1 12 00:20 balloon x 15 balloon ([id number]) 11:32:34 Place stent Dist RCA MOOKIE RX 3.0 x 2 12 00:15 15 stent ([id number]) Device Usage Item Name Manufacture Quantity Catalog Number Hospital Part Current Minimal Lot# / Charge Number Stock Stock Serial# Code ACIST Syringe Acist 1 20719 518127 090375 507894 20 (14790) Medical Systems Inc Bag Decanter Microtek 1 2001S 907920 51437 828700 5 (2001S) Medical Inc. ACIST Hand Acist 1 46296 050143 653995 722360 5 Control Medical (33403) Systems Inc ACIST Manifold Acist 1 38128 918174 311077 790026 5 (60258) Medical Systems Inc Tegaderm 4 x 4 3M 1 1626W 559989 511839 734495 5 (1626W) Medline Cath Medline 1 [id number] 355053 10252 561713 5 Pack ([id number]) DIAGNOSTIC Cardinal 1 TX7656 456817 64768 906057 30 Multipack 5Fr Health catheter set (QZ5045) SHEATH 5FR Terumo 1 KTJ223 176965 886766 206017 5 Hollis (EUU550) EMERALD Guide Cardinal 1 502-455 389783 283769 713649 5 Wire (502-455) Health MULTIPACK JL Cardinal 1 083686 5 4.0 5Fr Health catheter DIAGNOSTIC Cardinal 1 [id number] 483927 240513 054311 9 3DRC 5Fr Health catheter (359793Z) MULTIPACK Cardinal 1 809006 5 Pigtail 5 Fr Health catheter SHEATH 6FR Terumo 1 XWW062 541117 643886 051795 40 Hollis (AXL606) WHISPER 300cm Ramirez 1 [id number] 539937 604081 565683 5 guide wire Vascular ([id number]) INFLATOR Merit Merit 1 EC4775 730884 503162 694364 15 [facility] (FO7890) GUIDE 6FR HS I Medtronic 1 LA6HSI 692407 59020 841368 1 catheter (LA6HSI) EMERGE OTW 3.0 Sublette 1 [id number] 451705 754113 437968 5 [id number] x 15 balloon Scientific ([id number]) MOOKIE RX 3.0 x Medtronic 1 [id number] 252019 0321278 414090 5 [id number] 15 stent ([id number]) EXOSEAL 6Fr Cardinal 1 EX600 910689 783312 356726 10 (EX600) Health Signature Audit [place] Stage Time Signature Unsigned Intra-Procedure 12/02/2018 Christine Clifton 11:41:48 AM RT(R) Signatures Monitor : Christine Clifton Signature : RT Date : Time : [address] [place] [address]
[~2018-12-01 16:04] MED LIST: AMITRIPTYLINE150 MG PO; MOBIC7.5 MG PO; NORVASC5 MG PO; PLAVIX75 MG PO; ZPAK PO
[2018-12-01 17:03] LABS: BASOPHILS 0.1 % (0-2); EOSINOPHILS 0.7 % (0-7); HEMATOCRIT 42.3 % (36.0-48.0); HEMOGLOBIN 15.2 g/dL (12-16); IMMATURE GRANULOCYTES 0.2 % (0-5); LYMPHOCYTES 10.6 % (15-50); MCHC 35.9 g/dL (31.0-37.0); MCV 89.1 fL (80.0-100.0); MEAN PLATELET VOLUME 11.5 fL (7.4-10.4); MONOCYTES 6.2 % (2-11); NEUTROPHILS 82.2 % (40-80); PLATELET COUNT 226 10x3/uL (130-400); RBC 4.75 10x6/uL (4.00-5.40); RDW 12.8 % (11.5-14.5); WBC 12.3 10x3/uL (4.8-10.8)
--- NOTE | 2018-12-01 17:04 | NUR ---
first nitro - 177/98 - 7/10 @ 1704 second nitro - 127/75 - 6/10 @1709 third nitro - 128/74 - 4/10 @1714
[2018-12-01 17:13] LABS: APTT 28.9 SECONDS (22.8-39.4); INR 1.04 (0.85-1.17); PROTIME 13.1 SECONDS (11.6-15.0)
[2018-12-01 17:16] LABS: ALBUMIN 3.3 g/dL (3.4-5.0); ALKALINE PHOSPHATASE 48 U/L (46-116); ALT (SGPT) 28 U/L (10-68); BILIRUBIN - TOTAL 0.42 mg/dL (0.2-1.3); CALC OSMOLALITY 269 mosm/kg (275-300); CALCIUM 8.8 mg/dL (8.5-10.1); CARBON DIOXIDE 23.9 mmol/L (21.0-32.0); CHLORIDE - SERUM 102 mmol/L (98-107); CREATININE - SERUM 0.8 mg/dL (0.6-1.3); GLUCOSE 116 mg/dL (74-106); POTASSIUM - SERUM 3.8 mmol/L (3.5-5.1); PROTEIN - SERUM 7.1 g/dL (6.4-8.2); SODIUM 135 mmol/L (136-145); UREA NITROGEN 11 mg/dL (7-18); eGFR NON AFRICAN AMERICAN 77 mL/min (90-120)
[2018-12-01 17:26] VITALS: BP 128/74
[2018-12-01 17:32] LABS: CKMB 4.9 U/L (0.0-3.6); CREATINE KINASE 157 UL (21-215); MAGNESIUM - SERUM 1.9 mg/dL (1.8-2.4)
--- NOTE | 2018-12-01 18:27 | NUR ---
morphine given via iv per provider okay
[2018-12-01 20:09] LABS: CKMB 4.3 U/L (0.0-3.6); CREATINE KINASE 129 UL (21-215)
[2018-12-01 20:12] LABS: TROPONIN-I 0.113 ng/mL (0.000-0.060)
--- NOTE | 2018-12-01 20:31 | NUR ---
ADMIT TO ROOM 2119 FROM ER. ALERT/ORIENTED. TELEMETRY STARTED. . ADMISSION HISTORY AND ASSESSMENT COMPLETED. HOME MEDS REVIEWED. PT C/O EXTREME CHEST PAIN 03/08 AT THIS TIME. PAGE/RETURN CALL FROM [place] ORDERS RECIEVED FOR IV MORPHINE FOR PAIN CONTROL. WU CHAVES APN ON UNIT SEEING PATIENT.
--- NOTE | 2018-12-01 23:06 | NUR ---
PT NOW RESTING IN BED WITH NO FURTHER REPORTS OF CHEST PAIN. SR PER TELEMETRY.
--- NOTE | 2018-12-01 23:56 | NUR ---
PT C/O CHEST PAIN TO LEFT SIDE OF CHEST AND INTO HER BACK. MEDICATED WITH MORHPHINE 5MG SIVP + ZOFRAN 4MG SIVP AT THIS TIME.
[2018-12-02] VITALS: BP 159/89
[2018-12-02 01:27] VITALS: BP 137/79; Ht 175.3 cm; Wt 90.9 kg
--- NOTE | 2018-12-02 03:40 | NUR ---
AWAKE, REPORTS NO FURTHER CHEST PAIN. RESTING IN BED. SR PER TELEMETRY. CALL LIGHT IN REACH.
[2018-12-02 04:00] VITALS: BP 145/87
--- NOTE | 2018-12-02 04:36 | NUR ---
AM LABS COLLECTED PER VENIPUCTURE/CONCRETE RUBBER. PT RESTING WITH NO FURTHER C/O CHEST PAIN.
[2018-12-02 05:07] LABS: ALBUMIN 3.2 g/dL (3.4-5.0); ALKALINE PHOSPHATASE 54 U/L (46-116); BILIRUBIN - TOTAL 0.58 mg/dL (0.2-1.3); CALC OSMOLALITY 275 mosm/kg (275-300); CALCIUM 8.2 mg/dL (8.5-10.1); CARBON DIOXIDE 25.5 mmol/L (21.0-32.0); CHLORIDE - SERUM 104 mmol/L (98-107); CREATININE - SERUM 0.8 mg/dL (0.6-1.3); GLUCOSE 111 mg/dL (74-106); MAGNESIUM - SERUM 1.9 mg/dL (1.8-2.4); POTASSIUM - SERUM 4.1 mmol/L (3.5-5.1); SODIUM 138 mmol/L (136-145); UREA NITROGEN 11 mg/dL (7-18); eGFR NON AFRICAN AMERICAN 77 mL/min (90-120)
[2018-12-02 05:13] LABS: ALT (SGPT) 46 U/L (10-68); BASOPHILS 0.2 % (0-2); EOSINOPHILS 1.8 % (0-7); HEMATOCRIT 42.5 % (36.0-48.0); HEMOGLOBIN 14.8 g/dL (12-16); IMMATURE GRANULOCYTES 0.2 % (0-5); LYMPHOCYTES 17.4 % (15-50); MCH 31.2 pg (26.0-34.0); MCHC 34.8 g/dL (31.0-37.0); MCV 89.5 fL (80.0-100.0); MEAN PLATELET VOLUME 11.7 fL (7.4-10.4); MONOCYTES 6.8 % (2-11); NEUTROPHILS 73.6 % (40-80); PLATELET COUNT 209 10x3/uL (130-400); RBC 4.75 10x6/uL (4.00-5.40); WBC 9.5 10x3/uL (4.8-10.8)
--- NOTE | 2018-12-02 07:19 | NUR ---
REPORT RECIEVED AND ROUNDING COMPLETE. PATIENT LAYING IN BED. A&O THIS MORNING X4. PATIENT HAS NO COMPLAINTS AT THIS TIME. PATIENT STATES CHEST PAINS ARE MUCH BETTER THIS MORNING. PATIENT IS WEARING NC WITH 02 RUNNING AT 2L. PATIENT HAS A RIGHT HAND SALINE LOCKED. DRESSING ADHERED TO SKIN AND SWAB CAP IN USE. NO S/SX OF INFECTION. PATIENT IS SHOWING NO S/SX OF DISTRESS AT THIS TIME. CALL LIGHT WITHIN REACH AND BED IN LOWEST POSITION.
[2018-12-02 09:32] VITALS: BP 143/85
--- NOTE | 2018-12-02 10:09 | NUR ---
PATIENT CAUGHT RIGHT HAND PIV ON TABLE WHEN GETTING OUT OF BED, PULLED IT OUT OF HAND. CATH INTACT AND MINNIUM BLEEDING NOTED. RESITED PIV TO LEFT BACK FOREARM. 1 STICK, 20 GAUGE, PATIENT TOLERATED WELL. PREOP MEDICATIONS GIVEN. NO OTHER NEEDS AT THIS TIME. CALL LIGHT WIHTIN REACH AND BED IN LOWEST POSITION.
[2018-12-02 10:20] LABS: CALC OSMOLALITY 276 mosm/kg (275-300); CALCIUM 8.4 mg/dL (8.5-10.1); CARBON DIOXIDE 23.9 mmol/L (21.0-32.0); CHLORIDE - SERUM 104 mmol/L (98-107); CREATININE - SERUM 0.7 mg/dL (0.6-1.3); GLUCOSE 112 mg/dL (74-106); SODIUM 138 mmol/L (136-145); UREA NITROGEN 12 mg/dL (7-18); eGFR NON AFRICAN AMERICAN 90 mL/min (90-120)
--- NOTE | 2018-12-02 10:52 | NUR ---
I have reviewed this patient and I concur with the Shift Assessment completed by the Licensed Practical Nurse today this shift.
--- NOTE | 2018-12-02 10:54 | NUR ---
PATIENT LEFT FLOOR VIA BED FOR SANITARY CHEMIST.
[2018-12-02] MEDS ORDERED: PLAVIX75 MG PO (11:51)
[2018-12-02 12:11] VITALS: BP 142/69
[2018-12-02] MEDS ORDERED: BAYER CHEWABLE81 MG PO (13:06)
--- NOTE | 2018-12-02 13:07 | NUR ---
CALLED [facility], TO CONFIRM PT IS TO BE ON ASPIRIN 81 MG DAILY. CONFIRMED AND ADDED TO HOME MEDICATION LIST.
[2018-12-02 16:26] VITALS: BP 149/76
--- NOTE | 2018-12-02 17:42 | NUR ---
1600 PATIENT IS ABLE TO SIT UP. RIGHT GROIN SOFT NO BLOOD NOTED. 1615 PATIENT UP TO THE BATHROOM AND PUT ON HER OWN CLOTHES. RIGHT GROIN SOFT NO BLEEDING NOTED. 1630 PATIENT READY TO LEAVE. REVIEWED PATIENTS PAPERWORK WITH PATIENT. PATIENT SIGNED PAPERWORK. RIGHT GROIN SOFT NO BLEEDING NOTED. 1700 REMOVED BOTH PIV FROM FOREARMS. BLEEDING NOTED HELD PRESSURE FOR 5 MIN WITH BOTH ARMS. RIGHT GROIN SOFT NO BLEEDING NOTED 1715 BLEEDING STOPPED PATIENT REFUSED WHEELCHAIR, WALKED WITH PATIENT TO FRONT DOOR TO MEET FRIEND THAT IS TO TAKE HER HOME
--- NOTE | 2018-12-03 10:48 | OP ---
PATIENT NAME: CARA CRANE MEDICAL RECORD: [id number] :57 LOCATION:D.M2 D.2120 ADMISSION DATE:12/01/18 SURGEON: EMILI ALVES MD DATE OF OPERATION: 12/02/2018 PROCEDURE: PTCA and stent report. CATHETERS: A 5-Fijian sheath, 5/4 left and right Jenny, 5/4 pig. The procedure was well tolerated. The patient was returned to the arevalo. Sheath removed. ExoSeal device placed. FINDINGS: Left ventriculography in 30-degree GNUYEN view; normal wall motion, normal systolic function. CORONARY ANATOMY: LEFT MAIN: Left main is free of disease. LAD: An area of previous stenting is widely patent with no evidence of restenosis. No evidence of progression of disease. CIRCUMFLEX: Free of disease. RIGHT CORONARY ARTERY: Has end-stent restenosis of 90% before the takeoff of the PD. PLAN: Intervention momentarily. DESCRIPTION OF PROCEDURE: A 5-Fijian sheath was exchanged for a 6-Fijian sheath. A hockey stick guide catheter provided good guide catheter support followed by 300-cm Whisper wire. Pre-deployment balloon used was a 3.0 x 15 mm [place]. Stent deployed was a 3.0 x 15 mm [place] drug-eluting stent up to 14 atmospheres. Final angiography shows excellent resolution of 90% plus stenosis, no significant residual, good step up and step down proximally and distally respectively. Sheath closed with ExoSeal device. The patient was loaded with Plavix in the lab. TRANSINT:[id number] Voice Confirmation ID: [id number] DOCUMENT ID: [id number] EMILI ALVES MD at 1048 CC: [id number] DICTATION DATE: 12/02/18 1153 CROSS ENTERPRISE INTEGRATOR: 12/02/18 1418 DIS IN 12/02/18 [facility] [address] [place] [address]
--- NOTE | 2018-12-03 10:48 | OP ---
PATIENT NAME: CARA CRANE MEDICAL RECORD: [id number] :57 LOCATION:D.M2 D.2120 ADMISSION DATE:12/01/18 SURGEON: EMILI ALVES MD DATE OF OPERATION: 12/02/2018 PROCEDURE: Four-vessel arteriography. INDICATION: Amaurosis fugax in a 63-year-old female with a history of cardiovascular disease, multiple risk factors. FINDINGS: 1. Right common carotid is selectively engaged. This is a smooth-walled vessel, free of disease. Right external carotid has some calcium deposition and luminal wall disease, but no obstructive disease. Right internal carotid is widely patent. 2. The left internal carotid was selectively engaged. This showed small vessel, free of disease. Left external carotid is smooth-walled vessel, free of disease. Left internal carotid has some calcifications in wall disease with no obstructive disease. TRANSINT:[id number] Voice Confirmation ID: [id number] DOCUMENT ID: [id number] EMILI ALVES MD at 1048 CC: [id number] DICTATION DATE: 12/02/18 1152 DIRECTOR OF SERVICES: 12/02/18 1334 DIS IN 12/02/18 [facility] [address] [place] [address]
--- NOTE | 2018-12-03 10:48 | CN ---
PATIENT NAME:CARA CRANE MEDICAL RECORD: [id number] : 57 LOCATION:D. D.2120 ADMIT DATE: 12/01/18 ACCOUNT: [id number] CONSULTING PHYSICIAN: EMILI ALVES MD REFERRING PHYSICIAN: WILLIAMS CHACON MD DATE OF CONSULTATION: 12/02/2018 HISTORY OF PRESENT ILLNESS: A 63-year-old female with a history of coronary artery disease, status post intervention, has a history of hypertension as well as dyslipidemia, 2-3 week history of chest tightness and pressure as well as fatigue. Has some visual changes, describes almost amaurosis fugax type symptomatology over the same time period with resolution over about 5-10 minutes. We are asked to see her concerning her cardiovascular status. PAST MEDICAL HISTORY: Includes: 1. History of hypertension. 2. Hyperlipidemia. 3. Coronary artery disease, status post intervention. 4. Psoriasis with psoriatic arthritis. MEDICATIONS: Typically include Norvasc 5 mg p.o. day, Mobic 7.5 every day, aspirin 81 every day. ALLERGIES: None known. SOCIAL HISTORY: Smokes about a pack a day. Occasional marijuana use. No set exercise program. Easily takes care of her ADLs. REVIEW OF SYSTEMS: The patient reports easy bruising but reports no swollen glands. The patient reports no fever, no night sweats, no significant weight gain, no significant weight loss. No significant exercise tolerance. The patient reports no dry eyes, no irritation, no vision change. Patient reports no difficulty hearing and no ear pain. Patient reports no frequent nose bleeds or nose and sinus problems. Patient reports on arm pain on exertion. No shortness of breath while lying down. No history of heart murmur. Patient reports no cough, no wheezing or coughing up blood. Patient reports no abdominal pain, no vomiting. Normal appetite. No diarrhea and not vomiting blood. No nausea and no constipation. Patient reports no incontinence. No difficulty urinating. No hematuria. No increased frequency. Patient reports no muscle aches. No weakness, no arthralgias, no back pain. No swelling of the extremities. Patient reports no abnormal mole, no jaundice, no rashes. Reports no loss of consciousness. No weakness and no numbness. No seizures, dizziness, or headaches. The patient reports no depression, no sleep disturbance, feeling safe in a relationship and no alcohol abuse. Patient reports on fatigue. Reports no runny nose or sinus pressure. No itching, no hives, and no frequent sneezing. PHYSICAL EXAMINATION: GENERAL: Well-developed, well-nourished, no acute distress. VITAL SIGNS: Blood pressure 143/85, pulse 63 and regular. HEENT: Normocephalic, atraumatic. NECK: No bruits are noted. HEART: Regular. S4 gallop is noted. LUNGS: Good air excursion. ABDOMEN: Soft, nontender. CONSULT REPORT [id number] CARA CRANE EXTREMITIES: Pulses 2+. There is no edema. DIAGNOSTIC DATA: ECG shows nonspecific ST-T changes inferolaterally. Cardiac enzymes are elevated at this point consistent with NSTEMI. IMPRESSION: [id number] myocardial infarction with known history of coronary artery disease. Additionally given her neurological symptomology, particularly with amaurosis fugax, we will plan for angiography as well as 4-vessel arteriography. Further recommendations based on the above. TRANSINT:[id number] Voice Confirmation ID: [id number] DOCUMENT ID: [id number] EMILI ALVES MD at 1048 CC: [id number] DICTATION DATE: 12/02/18 0958 LAND MANAGEMENT SUPERVISOR: 12/02/18 1215 DIS IN 12/02/18 [id number] [place] [address]
--- NOTE | 2018-12-04 08:43 | MORECARE ---
CASE MANAGEMENT DISCHARGE SUMMARY PATIENT: CARA CRANE UNIT: [id number] ADM DATE: 12/01/18 AGE: 63 : 57 SEX: F ROOM/BED: D.0230 AUTHOR: TY COSME PHYSICIAN: REFERRING PHYSICIAN: WILLIAMS CHACON MD DATE OF SERVICE: 12/04/18 Discharge Plan Patient Name: CARA CRANE Facility: [facility]:[place] : 1955 Planned Disposition: Home Anticipated Discharge Date: 12/02/18 Discharge Date: 12/02/2018 Expected LOS: 1 Initial Reviewer: [email or web address] Initial Review Date: 12/04/2018 Generated: 12/04/18 9:43 am Patient Name: CARA CRANE Page [id number] at 0843 All edits/amendments must be made on the electronic document DICTATION DATE: 12/04/1843 OUTSOLE LEVELER: SANDI 12/04/1843 RPT#: [id number] DC DATE:12/02/18 STATUS: DIS IN [facility] [address] [place] [address] END OF REPORT
== END 2018-12-02 17:52 | disposition home or self-care (01) ==
LOC: D.ER 16:04 → D.M2 18:32 → OBSVTIME 18:33 → D.M2 12-02 17:52
PROVIDERS: Emergency Medicine; Family Medicine; Internal Medicine Interventional Cardiology; ADMIT Internal Medicine Nephrology; ATTEND Internal Medicine Nephrology
DX: I21.4 Non-ST elevation (NSTEMI) myocardial infarction (principal); G45.3 Amaurosis fugax; F17.213 Nicotine dependence, cigarettes, with withdrawal; F12.90 Cannabis use, unspecified, uncomplicated; I25.119 Atherosclerotic heart disease of native coronary artery with unspecified angina pectoris; I10 Essential (primary) hypertension; L40.9 Psoriasis, unspecified; F64.0 Transsexualism; F32.9 Major depressive disorder, single episode, unspecified
CPT/HCPCS: 93458; 36222; C9600

== ENCOUNTER 2019-09-28 14:38 | Emergency (ER) | payer MEDICARE, BC ==
[~2019-09-28] VITALS: Ht 175.3 cm; Wt 95.9 kg
[~2019-09-28 14:38] MED LIST changes: +BAYER CHEWABLE81 MG PO
[2019-09-28 14:43] VITALS: Ht 175.3 cm; Wt 95.9 kg
[2019-09-28] MEDS ORDERED: NAPROSYN500 MG PO (16:47)
[2019-09-28 17:45] VITALS: BP 154/81
== END 2019-09-28 17:45 | disposition home or self-care (01) ==
LOC: D.ER 14:38
DX: M84.48XA Pathological fracture, other site, initial encounter for fracture (principal); I10 Essential (primary) hypertension; Z72.0 Tobacco use